=== PATIENT | female | born 1970 | race Caucasian/White ===

== ENCOUNTER 2020-04-22 02:33 | Emergency (ER) | payer OTHER ==
[~2020-04-22] VITALS: Ht 162.6 cm; Wt 102.1 kg
[2020-04-22 02:40] VITALS: BP_SYST 147
--- NOTE | 2020-04-22 02:42 | NUR ---
Patient to ER bed 8 to gown for evaluation. Side rails up.
--- NOTE | 2020-04-22 02:43 | NUR ---
Patient came to ER with family. C/O Epigastric pain x today. Per patient reported, patient had epigastric pain, burning pain, Hx Gastric reflux, after woke up at 0130 AM. A/O, X4, Epigastric pain, 11/12.
--- NOTE | 2020-04-22 02:44 | NUR ---
Note jerry in EDM - 04/22/20 at 0245 by BRITTANI Placed in room 8 . Placed on scow captain, blood pressure machine and pulse oximeter. To gown for exam. Side rails up. Report given to CINTHYA OG
--- NOTE | 2020-04-22 02:49 | NUR ---
ER Dr. Fletcher at bedside examining patient.
[2020-04-22] MEDS ORDERED: MAG HYDROX/AL HYDROX/SIMETH 30 ML, DICYCLOMINE HCL 20 MG, LIDOCAINE VISCOUS 2% 15ML (PO... PO ONE ×3 (03:00)
--- NOTE | 2020-04-22 03:18 | NUR ---
Patient given written and verbal discharge instructions and verbalizes understanding. ER MD discussed with patient the results and treatment provided. Patient in stable condition. ID arm band removed. Rx of Protonix given. Patient educated on pain management and to follow up with PMD. Pain Scale 1/10. Opportunity for questions provided and answered. Medication side effect fact sheet provided.
== END 2020-04-22 03:19 | disposition home or self-care (01) ==
LOC: SED 02:33 → EDBD 02:33 → SED 03:19
DX: K21.9 Gastro-esophageal reflux disease without esophagitis (principal)
CPT/HCPCS: 93005; 99283; J2001